=== PATIENT | male | born 1950 | race Two or more races ===

== ENCOUNTER 2024-02-25 09:31 | Emergency (ER) | payer MEDICARE, MEDICAID, SELFPAY ==
--- NOTE | 2024-02-25 09:47 | PC.NURSE ---
TIME OF ANNOUNCED BY DR MARCOS AT 0872.
--- NOTE | 2024-02-25 09:55 | PD.EDCPR ---
ED CPR RME/HPI General Chief Complaint: Cardiac Arrest/CPR Stated Complaint: TAE MCKNIGHT Arrival date/time: 02/25/24 09:31 RME / HPI RME / HPI narrative: 73 year old male presents to the ED [facility] from home as a code blue. Per medics report, family on scene witnessed patient become unresponsive and immediately began CPR ~ 30 min [employer]GER ARCHITECT. The patient was intubated with i-gel in the field and administered 3 epinephrine and shocked once for Vtach. ROSC was not achieved and compressions are still ongoing. 0950: I spoke with patients daughter and . Reports the patient was up this morning and had breakfast. stated shortly after patient had complained of pain to the back of his head and felt shaky . Got up to use the restroom and while there become unresponsive. Daughter reports she called 911 and CPR was initiated. Family report a history of CVA, ESRD on HD M/W/F, diabetes, hyperlipidemia. Add the patient did not receive his scheduled dialysis on Sunday due to feeling unwell. Was admitted at [facility] and again did not receive his dialysis on Sunday. Review of Systems Review of Systems Narrative Review of Systems: Unobtainable due to acuity. Past Medical History Social History SMOKING STATUS: Unknown if ever smoked ED Exam Narrative Physical exam: GEN. APPEARANCE: Patient arrived with no signs of life, in cardiac-respiratory arrest with CPR in progress, bagged through i-gel via bag valve mask. VITALS: Unobtainable. HEENT: Normocephalic, atraumatic, no spontaneous eye movements. NECK: Supple, no JVD, no mass, no lymphadenopathy. CARDIOVASCULAR: No spontaneous cardiac activity, CPR in progress. ABDOMEN: Soft, mildly distended. EXTREMITIES: Flaccid. No edema. No signs of trauma. SKIN: Cool and dry, no rashes noted. No signs of trauma. NEURO: GCS is 3. Unable to evaluate secondary to unresponsive. Course Course Course Narrative: Please refer to nurses code sheet for medication administrations 0918: Patient arrived, CPR in progress by EMS, bagged through i-gel via BVM 0920: Pulse check, PEA 40's, CPR resumed 921: Pulse check, PEA 40's, CPR resumed 921: Patient intubated 0924: Pulse check, vtach, shocked at 200 joules, CPR resumed 925: Pulse check, vtach, shocked at 200 joules, CPR resumed 927: Pulse check, no pulse, CPR resumed 929: Pulse check, vfib, shocked at 200 joules, CPR resumed 0932: Pulse check, vfib, shocked at 200 joules, CPR resumed 0934: Pulse check, vfib, shocked at 200 joules, CPR resumed 0936: Pulse check, vfib, shocked at 200 joules, CPR resumed 0938: Pulse check, PEA 40's, CPR resumed 0940: Pulse check, PEA 30's, CPR resumed 0942: Pulse check, PEA 40's, CPR resumed 0944: Pulse check, PEA 90's, CPR resumed 0946: Pulse check, PEA 30's. 0950: Spoke with family- and daughter. Time of 09:47 Quality Measures none Orders Category Date Time Status Intubation NOW Care 02/25/24 09:20 Completed Procedures -ED Intubation Time out performed: No (Performed emergently ) sedative: none Laryngoscope: fiber optic video scope Assist Device Used: fiber optic device ET Tube Size: 7.5 ET Tube Uncuffed: No Tube Secured Depth (cm): 23 Tube Secured Location: other (Gum) Tube Placement Confirmation: visualized tube passing through cords, equal breath sounds bilaterally, no breath sounds over epigastrium and confirmation by capnometry Patient Tolerated Procedure: well and no complications Intubation Complications: none Cardiac Arrest / CPR MDM Narrative MDM Narrative:: Liza Mantilla am scribing for and in the presence of Dr. Art. Patient data External records reviewed:: EMS form Clinical information provided by:: EMS and family ( and daughter ) Social determinants that could affect healthcare access:: none Patient has the following chronic illnesses:: CVA, ESRD on HD M/W/F, diabetes, hyperlipidemia. How is presenting disease/condition affected by chronic disease/condition?: exacerbated by Evaluation data The following diagnostics were reviewed and interpreted by me:: other (specify) (None) Lab and/or radiology exams considered but not ordered:: None Interpretation Summary: As noted above Medications / Prescriptions Medications or Prescriptions considered but not ordered:: None Medication administrations:: As noted above Consultations Consultation(s) initiated? (list below): No Diagnosis Cardiac arrest differential diagnosis: acute massive pulmonary embolism, acute respiratory failure, acute myocardial infarction, cardiac arrest and sudden cardiac Most likely diagnosis given after review of the tests above:: Cardiopulmonary arrest Admission Indicated Admission indicated?: not indicated Explain why admission is indicated or not indicated:: Patient at 09:47 am. Admission Request Was there a request for admission?: No Disposition Plan Disposition Plan: other (specify) (Patient ) Critical Care Time Critical Care Time Critical Care Time: Yes Total Critical Care Time (min.): 35 Attestation: Excluding billable procedures for the rapid response, analysis, management, treatment, and documentation and attempt to resuscitate and prevent . Discharge Plan Plan Patient Disposition: Prescriptions/Referrals Referrals: Jasiel Gomez [Primary Care Provider] - In 1 week Problem List Clinical Impression: Cardiac arrest Patient/Caregiver Discharge Instructions Print Language: English
--- NOTE | 2024-02-25 10:35 | CHAP ---
Responded to Code Blue at 09:12. computer networker was caring for the family.
--- NOTE | 2024-02-25 10:57 | PC.CC ---
0917-Pt Ant Knox arrived to ED with CPR in progress. Pt is a 69 yr old dialysis pt with witnessed down time by family, 30 minutes prior to pts arrival to ED. DRAGSAW OPERATOR CC along with ED attending Dr. Art met with pts and daughter in ED conference room. Family informed by ED attending that pt did not regain a heart beat after life saving measures were taken. Family has selected on-call mortuary to collect pts remains. DRAGSAW OPERATOR CC escorted pts and daughter to bedside. DRAGSAW OPERATOR CC will remain available as needed for pt care and staff support.
--- NOTE | 2024-02-25 12:20 | PC.NURSE ---
PTS BODY PICKED UP BY MORTUARY.
== END 2024-02-25 12:20 | disposition expired ==
PROVIDERS: Emergency Provider Emergency Medicine; PCP Physician Assistant
DX: I47.20 Ventricular tachycardia, unspecified (principal); I46.2 Cardiac arrest due to underlying cardiac condition
CPT/HCPCS: 31500; 92950; 93005; 99291; J0171; J0282